=== PATIENT | male | born 1970 | race Caucasian/White ===

== ENCOUNTER 2023-10-27 21:30 | Day surgery (SDC) | payer BC, SELFPAY ==
[2023-10-27 21:30] VITALS: BMI 29.4
[2023-10-27 21:31] VITALS: BP 136/92
[2023-10-27] MEDS: GlucaGen 1 MG IV ×2 (22:19→23:29)
--- NOTE | 2023-10-27 22:19 | ED.GENMED ---
History of Present Illness
General
Chief Complaint: Esophageal Problem
Source: patient
Exam Limitations: none
Time Seen by Provider: 10/27/23 22:15
History of Present Illness
History of Present Illness:
See MDM
Past History
Past History
ED Past Medical History: None and Other (Food impaction)
ED Past Surgical History: None
Social History
Tobacco: Non-smoker
Alcohol: Occasional
Drug: None
Living: with family
Employment: Employed
Family History
Family History: Early CAD (The patient's mother coronary artery disease with 4 stents); Negative Diabetes, Hypertension, Asthma or Cancer
Phy Exam
Physical Exam
Physical Exam:
See MDM
Course
Orders/Labs/Results
Orders:
Orders
10/27/23 22:18
Glucagon [GlucaGen] 1 mg .ROUTE .STK-MED ONE
10/27/23 22:19
Glucagon [GlucaGen] 1 mg IV NOW STA
10/27/23 23:21
Glucagon [GlucaGen] 1 mg IV NOW STA
10/28/23 00:05
Consult Gastroenterology [GASTROINTESTINAL CONSULT] Urgent
Consulting Provider: Gris Dixon
Was physician already notified: Yes
10/28/23 01:50
Dexamethasone Sod Phosphate [Decadron] 20 mg .ROUTE .STK-MED ONE
Lidocaine HCl/Pf [Xylocaine-Mpf 1% Vial] 50 mg .ROUTE .STK-MED ONE
Propofol [Diprivan] 20 ml .ROUTE .STK-MED
Rocuronium [place] [Rocuronium] 50 mg .ROUTE .STK-MED ONE
Succinylcholine Chloride [Succinylcholine] 200 mg .ROUTE .STK-MED ONE
Sugammadex Sodium [Bridion] 200 mg .ROUTE .STK-MED ONE
10/28/23 01:51
Midazolam HCl [Versed] 2 mg .ROUTE .STK-MED ONE
Ondansetron Injectable [Zofran] 4 mg .ROUTE .STK-MED ONE
Vital Signs
Initial and Last Documented VS:
Initial Vital Signs
Temp Pulse Resp BP Pulse Ox
98.6 F 86 18 136/92 97
10/27/23 21:31 10/27/23 21:31 10/27/23 21:31 10/27/23 21:31 10/27/23 21:31
Last Documented Vital Signs
Temp Pulse Resp BP Pulse Ox
97.8 F 78 18 132/88 98
10/28/23 02:56 10/28/23 03:07 10/28/23 03:07 10/28/23 03:07 10/28/23 03:07
MDM/Problems Addressed
Differential Diagnosis Includes:
HPI and MDM Narrative:
53-year-old male presenting for evaluation of esophageal food impaction. Patient noted that pulled pork got stuck approximately 2.5 hours ago. This has happened before where he required endoscopy. Patient is nervous to try and swallow. He
continues to burp
Will give dose of glucagon. Patient is protecting airway
Physical exam
General: Well appearing and non-toxic
HEENT: protecting airway. Posterior pharynx clear
Neck: appears supple
CV: No evidence of cyanosis
Resp: No accessory muscle use
Abd: Non-distended
Extremities: No deformities
Neuro: alert
Psych: Normal affect
Skin: Intact
Problems Addressed including Acute and Chronic Conditions affecting care:
1. Esophageal food impaction
Acuity: acute
Prognosis: stable
Details: Patient is protecting airway. Will give dose of glucagon
Updates
After second dose of glucagon, patient still unable to swallow secretions. GI made aware
Differential Diagnosis (but not limited to): Esophageal food impaction, esophageal stricture
Testing considered: X-ray
Drug therapy (if applicable): OTC meds, please see d/c instruction regarding Rx drugs
Amount and/or Complexity of Data Reviewed
Clinical info obtained from: Patient
External data reviewed: N/A
Labs I independently reviewed (but not limited to): N/A
Radiology: N/A
Pulse Ox: not hypoxic
EKG independently reviewed: N/A
Entry Tech: N/A
Critical Care: N/A
Risk of Complication:
Social Determinants of health: Good social support
Discussed with other providers: Gastroenterology
Escalation of Care includes Admit/Obs: Given esophageal food impaction, GI will bring to GI lab
Occasional wrong word or 'sound a like' substitutions may have occurred due to the inherent limitations of voice recognition software. Read the chart carefully and recognize, using context, where substitutions have occurred.
*Critical Care Note
Total Time (30-74mins, 75-104mins- exclusive of procedures): Not Applicable
ED Attending Note
-
Portions of this chart may have been created with voice recognition software.� Occasional wrong word or��sound alike� substitutions may have occurred due to the inherent limitations of voice recognition software.
Discharge Plan
Departure
Patient Disposition: GI LAB
Date of Disposition: 10/28/23
Time of Disposition: 00:04
Presentation/result/management discussed w/ accepting MD/DO: Gastroenterology
Discharge Problem:
Food impaction of esophagus
Prescriptions:
No Action
No Current Medications
0
Referrals:
Alexi Page DO [Family Provider] -
Interventions
Interventions:
*Risk Screen - Suicide Last Done: 10/27/23 21:31
*General Assessment Last Done: 10/27/23 21:31
*Neglect/Abuse Screening Last Done: 10/27/23 21:31
*Nursing Disposition Last Done: 10/28/23 02:01
BO-Gfewmo-Viumgtghrj Assessment Last Done: 10/27/23 23:41
ED-EENT Assessment Last Done: 10/27/23 23:41
Discharge Date and Time
Discharge Date/Time: 10/28/23 02:01
Print Language: ETHIOPIAN
[2023-10-27 23:40] VITALS: BP 141/93
--- NOTE | 2023-10-28 00:55 | CON.GI ---
Consultation
-
Date/Time Consultation Requested: 10/27/2023, 11pm
Date/Time Consultation Performed: 10/28/2023, 1:50 am
Requesting Provider: Dr. Price
Performing Provider: Dr. Dixon
Reason for Consultation: food impaction
Medical History
Chief Complaint / HPI
Chief Complaint: food impaction
History of Present Illness:
53 yo M known EoE here with pulled pork food impaction. Ate at like 8pm.
I was told pt had issues tolerating secretions but comfortable now s/p 2 doses of glucagon but c/o chest discomfort.
Multiple EGDs - most recent [address] Alvarez with significant eosinophils ([id number]).
Has been on PPI and Flovent and saw allergy in past. Last time saw Dr. Alvarez in office 2019.
Past Medical History
Past Medical History: Hypercholesterolemia
Past Surgical History: Other (adenoids)
Social History
Tobacco: Non-Smoker
Alcohol: Occasional
Drug: None
Family History
Family History: Reviewed & Not Pertinent
Allergies / Home Medications
Allergy/AdvReac Type Severity Reaction Status Date / Time
No Known Allergies Allergy Unverified 05/21/10 20:20
�Medication �Instructions �Recorded
No Meds [No Current Medications] 05/13/13
Review of Systems
Vital Signs
Temp Pulse Resp BP Pulse Ox
98.6 F 97 18 141/93 98
10/27/23 21:31 10/27/23 23:40 10/27/23 23:40 10/27/23 23:40 10/27/23 23:40
Physical Exam
Exam
General: Well Developed
GI: Non Tender and Non Distended
Skin: Warm
Neuro: AO x 3
Results
Diagnostic Image Results:
Prior GI Procedures:
EGD:
Colonoscopy:
Assessment / Plan
-
53 yo M with EoE here with food impaction.
R/a/b explained to pt for EGD - plan urgent EGD.
Stressed to pt importance of follow up and new advances in EoE - I will send a msg to Dr. Alvarez to arrange follow up.
-
-
Thank you for consultation and allowing me to participate in the patient's care. Please call the communications department chairperson GI physician during the after hours with any questions or concerns.
[2023-10-28 01:40] VITALS: BP 143/83
[2023-10-28 02:36] VITALS: BP 132/78
[2023-10-28 02:45] VITALS: BP 115/70
[2023-10-28 02:56] VITALS: BP 129/84
[2023-10-28 03:07] VITALS: BP 132/88
== END 2023-10-28 02:01 ==
LOC: SDS 21:30
PROVIDERS: ATTENDING PHYSICIAN Student in an Organized Health Care Education/Training Program; CONSULT PHYSICIAN Internal Medicine Gastroenterology; FAMILY PHYSICIAN Family Medicine
DX: T18.128A Food in esophagus causing other injury, initial encounter (principal); W44.F3XA Food entering into or through a natural orifice, initial encounter; K20.0 Eosinophilic esophagitis; K22.89 Other specified disease of esophagus
CPT/HCPCS: 43247; 43239; 88305; J1610

== ENCOUNTER 2024-08-24 06:13 | Day surgery (SDC) | payer BC, SELFPAY | END 2024-08-24 12:29 | disposition home or self-care (01) | LOC: GI 06:13 | PROVIDERS: ATTENDING PHYSICIAN Specialist | DX: K20.0 Eosinophilic esophagitis (principal); K22.89 Other specified disease of esophagus; K20.90 Esophagitis, unspecified without bleeding | CPT/HCPCS: 43239; 88305 ==